=== PATIENT | female | born 1950 | race Hispanic/Latino ===

== ENCOUNTER 2016-06-01 12:54 | Outpatient (CLI) | payer MEDICARE ==
--- NOTE | 2016-06-01 14:37 | Mammography Report ---
BONE DEXA:06/01/16 12:54:00 CLINICAL: Postmenopausal. COMPARISON: 07/06/13 TECHNIQUE: Two site bone DEXA performed on an Hologic scanner. FINDINGS: The average BMD of the lumbar spine L1-L4 is 0.929g/cm squared with a T-score of -1.1 and a Z-score of +0.1. This compares to 0.947g/cm squared on the last exam and represents a -1.9% change from the previous baseline. The average BMD of the left hip is 0.853g/cm squared with a T-score of -0.7 and a Z-score of +0.7. This compares to 0.896g/cm squared on the last exam and represents a -4.8% change from the previous baseline. IMPRESSION: 1. WHO classification: Osteopenia with increased fracture risk based on the spine and left hip measurements. 2. A modest decline in both spine and left hip BMD compared to the prior exam.. RECOMMENDATION: Clinical correlation and routine screening. DEFINITIONS: BMD = Bone Mineral Density T-score = BMD related to mean peak bone mass of young adult (mean expressed in Standard Deviation) Z-score = Age matched BMD expressed in SD World Health Organization (WHO) Diagnostic Criteria Normal T-score > -1 SD Osteopenia T-score between -1 and -2.4 SD Osteoporosis T-score -2.5 SD or below NOTE: BMD is not the only risk factor for fracture; also consider factors such as the patient's age, risk of falling, previous osteoporotic fracture, family history of osteoporotic fractures, current smoker, and low body weight. Z-scores are not calculated if >80 years of age.
== END 2016-06-01 12:55 | disposition home or self-care (01) ==
LOC: SPVWC 12:54
PROVIDERS: ATTEND Family Medicine
DX: M81.0 Age-related osteoporosis without current pathological fracture (principal); M85.88 Other specified disorders of bone density and structure, other site; Z78.0 Asymptomatic menopausal state
CPT/HCPCS: 77080

== ENCOUNTER 2016-09-03 06:34 | Day surgery (SDC) | payer MEDICARE ==
[2016-09-03 07:41] LABS: Eosinophils % (Auto) 3.1 % (0.0-4.3); Hematocrit 41.2 % (30.3-42.9); Hemoglobin 13.6 gm/dl (10.1-14.3); Mean Corpuscular HGB Conc 33 % (30-34); Mean Corpuscular Hemoglobin 31 pg (28-32); Mean Corpuscular Volume 92 fl (79-97); Platelet Count 195 K/mm3 (140-440); Red Blood Count 4.47 M/mm3 (3.65-5.03); Red Cell Distribution Width 13.8 % (13.2-15.2); White Blood Count 7.6 K/mm3 (4.5-11.0)
[2016-09-03 07:43] LABS: INR 1.03 (0.87-1.13)
[2016-09-03 07:56] LABS: Anion Gap 18 mmol/L; Blood Urea Nitrogen 15 mg/dL (7-17); Calcium 8.9 mg/dL (8.4-10.2); Carbon Dioxide 22 mmol/L (22-30); Chloride 107.3 mmol/L (98-107); Glucose 102 mg/dL (65-100); Sodium 143 mmol/L (137-145)
[2016-09-03] MEDS ORDERED: NACL 0.9% 500 ML 500 ML IV SCH (08:00)
[2016-09-03] MEDS ORDERED: CALAN ONE (09:14)
[2016-09-03] MEDS ORDERED: XYLOCAINE 2% INFILTRATI ONE (09:14)
[2016-09-03] MEDS ORDERED: NITROGLYCERIN SYRINGE 3 ML ONE (09:14)
[2016-09-03] MEDS ORDERED: HEPARIN/NS 5000 UNIT/500ML(CATH LAB) 1,000 ML IR ONE (09:14)
[2016-09-03] MEDS: VERSED ONE ×3 (09:39→10:08)
[2016-09-03] MEDS: SUBLIMAZE ONE ×2 (10:08→10:14)
[2016-09-03] MEDS: HEPARIN 10,000 UNITS/10 ML ONE ×2 (10:15→10:40)
[2016-09-03] MEDS ORDERED: VERSED ONE (10:21)
--- NOTE | 2016-09-03 11:29 | Discharge Summary ---
Short Stay Discharge Plan Activity: advance as tolerated Weight Bearing Status: Full Weight Bearing Diet: low fat, low cholesterol, low salt Wound: keep clean and dry Special Instructions: no heavy lifting (3 days) Follow up with: VARGHESE CALDERON MD [Primary Care Provider] - 7 Days JASMINA MCCLURE MD [Staff Physician] - 7 Days
[2016-09-03] MEDS ORDERED: NACL 0.9% 1000 ML 1,000 ML IV SCH (12:00)
--- NOTE | 2016-09-03 12:45 | Cardiac Catherization Report ---
CARDIAC CATHETERIZATION REPORT REASON FOR STUDY: Abnormal thallium stress test. PROCEDURES PERFORMED 1. Left heart catheterization with coronary angiography. 2. Left ventricle angiography. 3. Intravascular ultrasound interrogation of the left main, proximal LAD. PROCEDURE IN DETAIL: The patient was prepped and draped in a sterile fashion after informed consent. The right radial cath site was prepped and draped after a negative Froylan's test. The right radial artery was entered using the Seldinger technique followed by placement of a 6-T[place]is[place] hydrophilic sheath. Routine radial cocktail was administered via the sheath. Selective left and right coronary angiography was performed using a #3.5 left Adrienne, and #4 right Adrienne. A pigtail catheter was used for left ventricle angiography. FINDINGS: HEMODYNAMICS: Left ventricle end diastolic pressure was 26, following coronary angiography. Ascending aortic pressure was 157/72. There was no significant pressure gradient on pullback across the aortic valve. ANGIOGRAPHY: There was severe calcification involving the left main and proximal to mid left anterior descending artery. CORONARY ANGIOGRAPHY: The left main coronary artery contained diffuse atherosclerosis in its proximal to mid segment, culminated in a focal, 50%-60% stenosis before its bifurcation into the LAD and circumflex. The left anterior descending artery contained diffuse mild to moderate atherosclerosis, with an up to 50% luminal stenosis of the mid segment. A small caliber ramus intermedius artery contained an up to 60% stenosis of its mid segment. There was an up to 70% stenosis of the ostial circumflex, which was an extension of the distal left main stenosis. Otherwise, there were mild irregularities of the mid and distal segments of the circumflex and obtuse marginal branches. The right coronary artery was dominant. There was diffuse atherosclerosis of the proximal and midvessel, with an up to 50%-70% luminal stenosis of the mid right coronary artery. Left ventricular systolic function was well preserved, ejection fraction of 50%-55%, following extrasystolic beat. INTRAVASCULAR ULTRASOUND: Intravascular ultrasound interrogation of the left main was recommended. We selected a #3.5 left Adrienne guiding catheter and advanced to the left coronary ostium. A 0.014 inch [employer] 50 guidewire was introduced into the left main and LAD. Heparin 3000 units intravenously was administered. Intravascular ultrasound interrogation was performed of the left main and proximal LAD. IVUS interrogation revealed a minimum diameter of the left main of 2.6 mm, the minimum area 7.7 square mm. The area of stenosis was 70%. CONCLUSION: 1. Multivessel coronary artery disease with severe calcification of the left main, proximal left anterior descending arteries. 2. Severe left main stenosis, evident on intravascular ultrasound interrogation. 3. Well preserved left ventricular systolic function, ejection fraction 50%-55%. RECOMMENDATION: The patient will be considered for coronary artery bypass surgery. JOB# [id number] CA/NTS
[2016-09-03 14:11] VITALS: BP 146/75
== END 2016-09-03 14:00 | disposition other institution (70) ==
LOC: OPU 06:34
PROVIDERS: ATTEND Internal Medicine Cardiovascular Disease
DX: I25.10 Atherosclerotic heart disease of native coronary artery without angina pectoris (principal); F41.9 Anxiety disorder, unspecified; E78.5 Hyperlipidemia, unspecified; Z85.3 Personal history of malignant neoplasm of breast; Z87.442 Personal history of urinary calculi; Z87.891 Personal history of nicotine dependence; Z98.890 Other specified postprocedural states; Z88.5 Allergy status to narcotic agent; Z83.49 Family history of other endocrine, nutritional and metabolic diseases
CPT/HCPCS: 36415; 80048; 85025; 85610; 85730; 92978; 93005; 93010; 93458; C1753; C1769; C1887; C1894; J1644; J2250; J3010; J7040; 85347; Q9967